=== PATIENT | female | born 1995 | race African-American/Black ===

== ENCOUNTER 2016-10-29 12:22 | Emergency (ER) | payer SELFPAY | END 2016-10-29 21:00 | disposition home or self-care (01) | LOC: D.ER 12:22 | DX: J02.9 Acute pharyngitis, unspecified (principal) ==

== ENCOUNTER 2017-03-11 07:03 | Day surgery (SDC) | payer OTHER ==
--- NOTE | 2017-03-08 10:57 | HP ---
PATIENT: GAYATHRI VÁSQUEZ MEDICAL RECORD: [id number] ACCOUNT: [id number] LOCATION:[facility] : 95 ADMISSION DATE: 03/11/17 HISTORY AND PHYSICAL EXAMINATION Preoperative History and Physical HISTORY: Gayathri is 21 years old. She has been having recurrent problems with pharyngitis as well as obstructive symptoms. She is being admitted for tonsillectomy and adenoidectomy. PAST MEDICAL HISTORY: Includes seasonal allergies. PAST SURGICAL HISTORY: None. CURRENT MEDICATIONS: Clindamycin. ALLERGIES: No known drug allergies. PHYSICAL EXAMINATION: GENERAL: She is a good historian, developmentally normal. Voice is consistent with large tonsils. NECK: No masses, no adenopathy. CHEST: Clear. CARDIOVASCULAR: Regular rate and rhythm, no murmur. EYES: Sclerae and conjunctivae are normal. EARS: Canals and TMs normal. NOSE: No mass, polyps or drainage. ORAL CAVITY AND OROPHARYNX: Normal, has 4+ cryptic tonsils. IMPRESSION: Obstructive adenotonsillar hypertrophy and recurrent pharyngitis. PLAN: Tonsillectomy and adenoidectomy. TRANSINT:[id number] Voice Confirmation ID: [id number] DOCUMENT ID: [id number] ERICK SUH MD at 1057 CC: [id number] DICTATION DATE: 03/07/17 1520 BUTTER LIQUEFIER: 03/07/172114 PRE [facility] [address] [place] [address]
[~2017-03-11] VITALS: Ht 162.6 cm; Wt 134.7 kg
--- NOTE | ~2017-03-11 | OP ---
PATIENT NAME: DESTINEE VÁSQUEZ MEDICAL RECORD: [id number] :95 LOCATION:[facility] ADMISSION DATE: SURGEON: ERICK BRITTON MD DATE OF OPERATION: 03/11/2017 PREOPERATIVE DIAGNOSIS: Obstructive adenotonsillar hypertrophy. POSTOPERATIVE DIAGNOSIS: Obstructive adenotonsillar hypertrophy. PROCEDURE: Tonsillectomy and adenoidectomy. SURGEON: Erick Britton MD ANESTHESIA: General orotracheal. BLOOD LOSS: Less than 5 cc. SPECIMENS: Right and left tonsil. COMPLICATIONS: None. DISPOSITION: Recovery stable. PROCEDURE IN DETAIL: She was brought to the operating room and placed in supine position, sedated and intubated by anesthesia. The eyes were taped. The table was turned 90 degrees. Head drapes applied and she was positioned for tonsillectomy. Using a headlight, a Nasreen-Jimi mouth gag was carefully inserted and elevated on a towel on her chest. The palate was examined and palpated. It was normal. A red rubber catheter was placed through the right side of the nose into the pharynx and grasped with tonsil clamp to retract the soft palate. Using a mirror, the nasopharynx was examined. Suction cautery on a setting of 35 was used to ablate and suction the adenoid pad with no significant bleeding. The choanae and eustachian orifices were normal bilaterally. The red rubber catheter was let down and removed. The right tonsil was grasped at the superior pole with a straight Allis clamp. Spatula tip cautery on a setting of 9 was used to dissect out the tonsil along its capsule, preserving the anterior and posterior tonsillar pillars. The left tonsil was removed in the same fashion. Then, both sides of the nose were irrigated with saline. The pharynx was suctioned. Tonsillar fossae were agitated. Suction cautery on a setting of 20 was used to control minimal oozing. With the field clean and dry, she was awakened, extubated, and transported to recovery in good condition. No complications. TRANSINT:[id number] Voice Confirmation ID: [id number] DOCUMENT ID: [id number] ERICK BRITTON MD CC: [id number] DICTATION DATE: 03/11/17 1137 HAND COKE DRAWER: 03/11/17 1642 [facility] 03/11/17 [facility] [address] [place] [address]
[2017-03-11 08:07] LABS: HEMATOCRIT 41.6 % (36.0-48.0); HEMOGLOBIN 13.3 g/dL (12-16); MCH 29.2 pg (26.0-34.0); MCV 91.2 fL (80.0-100.0); MEAN PLATELET VOLUME 9.2 fL (7.4-10.4); RBC 4.56 10x6/uL (4.00-5.40); RDW 12.9 % (11.5-14.5); WBC 3.9 10x3/uL (4.8-10.8)
[2017-03-11 08:42] VITALS: BP 126/81; Ht 162.6 cm; Wt 134.7 kg
[2017-03-11 09:00] LABS: HCG SERUM NEGATIVE (NEGATIVE)
== END 2017-03-11 14:45 | disposition home or self-care (01) ==
LOC: D.OPS 07:03 → D.PAN 09:30 → D.OPS 09:45 → D.PAN 09:45 → D.OPS 10:00 → D.PAN 13:15 → D.OPS 13:15
PROVIDERS: Anesthesiology
DX: J35.3 Hypertrophy of tonsils with hypertrophy of adenoids (principal); Z01.812 Encounter for preprocedural laboratory examination

== ENCOUNTER → 2017-06-16 18:42 | Emergency (ER) | payer OTHER ==
[2017-03-11 08:42] VITALS: BMI 51.1
[2017-06-16 19:28] LABS: BASOPHILS 0.5 % (0-2); EOSINOPHILS 1.8 % (0-7); HEMATOCRIT 40.2 % (36.0-48.0); HEMOGLOBIN 13.1 g/dL (12-16); LYMPHOCYTES 46.3 % (15-50); MCH 29.3 pg (26.0-34.0); MCHC 32.6 g/dL (31.0-37.0); MCV 89.9 fL (80.0-100.0); MONOCYTES 8.1 % (2-11); NEUTROPHILS 43.3 % (40-80); PLATELET COUNT 288 10x3/uL (130-400); RBC 4.47 10x6/uL (4.00-5.40); RDW 12.8 % (11.5-14.5); WBC 7.7 10x3/uL (4.8-10.8)
[2017-06-16 19:42] LABS: ALBUMIN 3.7 g/dL (3.4-5.0); ALKALINE PHOSPHATASE 76 U/L (46-116); ALT (SGPT) 34 U/L (10-68); CALC OSMOLALITY 273 mosm/kg (275-300); CALCIUM 8.9 mg/dL (8.5-10.1); CHLORIDE - SERUM 106 mmol/L (98-107); CREATININE - SERUM 0.9 mg/dL (0.6-1.3); GLUCOSE 87 mg/dL (74-106); POTASSIUM - SERUM 3.9 mmol/L (3.5-5.1); PROTEIN - SERUM 7.3 g/dL (6.4-8.2); SODIUM 138 mmol/L (136-145); UREA NITROGEN 11 mg/dL (7-18); eGFR NON AFRICAN AMERICAN 84 mL/min (90-120)
[2017-06-16 19:46] LABS: TROPONIN-I < 0.017 ng/mL (0.000-0.060)
== END | disposition home or self-care (01) ==
LOC: D.ER 18:42
PROVIDERS: Emergency Medicine
DX: R07.89 Other chest pain (principal)

== ENCOUNTER 2017-09-04 18:01 | Emergency (ER) | payer OTHER ==
[2017-03-11 08:42] VITALS: BMI 51.1
[2017-09-04 18:46] LABS: BASOPHILS 0.5 % (0-2); EOSINOPHILS 3.1 % (0-7); HEMATOCRIT 43.1 % (36.0-48.0); HEMOGLOBIN 13.9 g/dL (12-16); IMMATURE GRANULOCYTES 0.2 % (0-5); LYMPHOCYTES 44.9 % (15-50); MCHC 32.3 g/dL (31.0-37.0); MEAN PLATELET VOLUME 8.6 fL (7.4-10.4); MONOCYTES 7.8 % (2-11); NEUTROPHILS 43.5 % (40-80); PLATELET COUNT 292 10x3/uL (130-400); RBC 4.79 10x6/uL (4.00-5.40); RDW 12.9 % (11.5-14.5); WBC 8.3 10x3/uL (4.8-10.8)
[2017-09-04 19:02] LABS: ALBUMIN 3.5 g/dL (3.4-5.0); ALKALINE PHOSPHATASE 81 U/L (46-116); ALT (SGPT) 21 U/L (10-68); BILIRUBIN - TOTAL 0.15 mg/dL (0.2-1.3); CALC OSMOLALITY 274 mosm/kg (275-300); CALCIUM 8.5 mg/dL (8.5-10.1); CARBON DIOXIDE 25.5 mmol/L (21.0-32.0); CHLORIDE - SERUM 105 mmol/L (98-107); CREATININE - SERUM 0.9 mg/dL (0.6-1.3); GLUCOSE 97 mg/dL (74-106); INR 0.95 (0.85-1.17); POTASSIUM - SERUM 3.8 mmol/L (3.5-5.1); PROTEIN - SERUM 7.2 g/dL (6.4-8.2); PROTIME 12.3 SECONDS (11.6-15.0); SODIUM 137 mmol/L (136-145); UREA NITROGEN 14 mg/dL (7-18); eGFR NON AFRICAN AMERICAN 84 mL/min (90-120)
== END 2017-09-04 20:39 | disposition home or self-care (01) ==
LOC: D.ER 18:01
PROVIDERS: Emergency Medicine
DX: K92.2 Gastrointestinal hemorrhage, unspecified (principal)

== ENCOUNTER → 2017-12-18 13:52 | Outpatient (CLI) | payer OTHER ==
[2017-03-11 08:42] VITALS: BMI 51.1
== END | disposition home or self-care (01) ==
LOC: D.RAD 11:45
DX: M54.5 Low back pain (principal)

== ENCOUNTER → 2020-04-21 11:40 | Outpatient (CLI) | payer OTHER ==
[2017-03-11 08:42] VITALS: BMI 51.1
== END | disposition home or self-care (01) ==
LOC: D.MAMMO 04-18 14:30
PROVIDERS: ATTEND Nurse Practitioner
DX: N63.15 Unspecified lump in the right breast, overlapping quadrants (principal)